=== PATIENT | female | born 1940 | race Caucasian/White ===

== ENCOUNTER → 2016-03-09 | Outpatient (CLI) | payer MEDICARE ==
[~2016-03-09] MED LIST: Z.0.NO CURRENT MEDS
[2016-03-09 13:09] LABS: AUTOMATED NEUTROPHIL # 2.7 TH/MM3 (1.8-7.7); BASOPHIL % 0.6 % (0.0-2.0); EOSINOPHIL # 0.3 TH/MM3 (0-0.4); EOSINOPHIL % 5.4 % (0.0-4.0); HEMATOCRIT 38.7 % (35.0-46.0); HEMO FLAGS DIFF FINAL; LYMPH % 31.8 % (9.0-44.0); LYMPHOCYTE # 1.6 TH/MM3 (1.0-4.8); MEAN CELL VOLUME 82.5 FL (80.0-100.0); MEAN CORPUSCULAR HEMOGLOBIN 27.5 PG (27.0-34.0); MEAN CORPUSCULAR HGB CONC 33.3 % (32.0-36.0); MONO % 10.3 % (0.0-8.0); NEUT % 51.9 % (16.0-70.0); PLATELET COUNT 225 TH/MM3 (150-450); RED BLOOD COUNT 4.69 MIL/MM3 (4.00-5.30); RED CELL DISTRIBUTION WIDTH 13.7 % (11.6-17.2); WHITE BLOOD COUNT 5.2 TH/MM3 (4.0-11.0)
[2016-03-09 13:51] LABS: ALKALINE PHOSPHATASE 64 U/L (45-117); ALT (GPT) 20 U/L (10-53); ANION GAP 10 MEQ/L (5-15); AST (GOT) 13 U/L (15-37); BICARBONATE 25.6 MEQ/L (21.0-32.0); BLOOD UREA NITROGEN 21 MG/DL (7-18); CHLORIDE 105 MEQ/L (98-107); GLOMERULAR FILTRATION RATE 80 ML/MIN (>89); GLUCOSE,FASTING 93 MG/DL (74-99); HDL CHOLESTEROL 59.8 MG/DL (40.0-60.0); LDL CHOLESTEROL 145 MG/DL (0-99); SODIUM (NA) 141 MEQ/L (136-145); TOTAL BILIRUBIN ADULT 0.4 MG/DL (0.2-1.0)
== END ==
LOC: PLAB 09:16
PROVIDERS: ATTEND Family Medicine
DX: E78.4 Other hyperlipidemia (principal); R53.81 Other malaise
CPT/HCPCS: 36415; 80053; 80061; 84443; 85025

== ENCOUNTER → 2017-03-21 | Outpatient (CLI) | payer MEDICARE ==
[2017-03-21 13:53] LABS: AUTOMATED NEUTROPHIL # 2.7 TH/MM3 (1.8-7.7); BASOPHIL % 0.6 % (0.0-2.0); EOSINOPHIL # 0.3 TH/MM3 (0-0.4); EOSINOPHIL % 5.4 % (0.0-4.0); HEMATOCRIT 38.8 % (35.0-46.0); LYMPH % 28.6 % (9.0-44.0); LYMPHOCYTE # 1.5 TH/MM3 (1.0-4.8); MEAN CELL VOLUME 82.6 FL (80.0-100.0); MEAN CORPUSCULAR HEMOGLOBIN 27.7 PG (27.0-34.0); MEAN CORPUSCULAR HGB CONC 33.6 % (32.0-36.0); MONO % 13.8 % (0.0-8.0); MONOCYTE # 0.7 TH/MM3 (0-0.9); NEUT % 51.6 % (16.0-70.0); PLATELET COUNT 242 TH/MM3 (150-450); RED BLOOD COUNT 4.69 MIL/MM3 (4.00-5.30); RED CELL DISTRIBUTION WIDTH 13.7 % (11.6-17.2); WHITE BLOOD COUNT 5.3 TH/MM3 (4.0-11.0)
[2017-03-21 14:03] LABS: ALBUMIN 3.7 GM/DL (3.4-5.0); AST (GOT) 15 U/L (15-37); BICARBONATE 25.3 MEQ/L (21.0-32.0); BLOOD UREA NITROGEN 23 MG/DL (7-18); CALCIUM 9.1 MG/DL (8.5-10.1); CHLORIDE 108 MEQ/L (98-107); CREATININE 0.87 MG/DL (0.50-1.00); GLOMERULAR FILTRATION RATE 63 ML/MIN (>89); GLUCOSE,FASTING 100 MG/DL (74-99); SODIUM (NA) 142 MEQ/L (136-145)
[2017-03-21 14:13] LABS: ALKALINE PHOSPHATASE 77 U/L (45-117); ALT (GPT) 19 U/L (10-53); CHOLESTEROL 208 MG/DL (120-200); CHOLESTEROL/ HDL RATIO 4.35 RATIO; HDL CHOLESTEROL 47.8 MG/DL (40.0-60.0); LDL CHOLESTEROL 126 MG/DL (0-99); TOTAL BILIRUBIN ADULT 0.3 MG/DL (0.2-1.0); TOTAL PROTEIN 6.6 GM/DL (6.4-8.2); TRIGLYCERIDES 172 MG/DL (42-150)
== END ==
LOC: PLAB 08:44
PROVIDERS: ATTEND Family Medicine
DX: E78.5 Hyperlipidemia, unspecified (principal); R53.83 Other fatigue; Z13.21 Encounter for screening for nutritional disorder
CPT/HCPCS: 36415; 80053; 80061; 82306; 84443; 85025

== ENCOUNTER 2017-11-01 05:32 | Inpatient (IN) ==
[2017-11-01] MEDS ORDERED: Metoprolol Tartrate 25 MG Tablet PO ONE (05:58)
[2017-11-01] MEDS ORDERED: Chlorhexidine Gluconate 2% 1 Pack (2 Cloths) TOPICAL ONE (05:58)
[2017-11-01] MEDS ORDERED: Sodium Chlor 0.9% Inj 500 ML IV.SIG SCH (06:00)
[2017-11-01] MEDS ORDERED: Dexamethasone Inj 20 MG/5 ML Vial IV.PUSH PRN (06:03)
[2017-11-01] MEDS ORDERED: Chlorhexidine 4% Topical 120 APPLIC/120 ML Bottle TOPICAL SCH (06:15)
[2017-11-01] MEDS ORDERED: Sodium Chlor 0.9% Inj 73.07 ML, Ropivacaine 0.5% PF Inj 24.63 ML, Ketorolac Inj 30 MG, ... P-ARTICULR SCH ×5 (06:15)
[2017-11-01] MEDS ORDERED: Tranexamic Acid Inj 700 MG in Sodium Chlor 0.9% Inj 100 ML IV.SIG SCH (07:00)
[2017-11-01] MEDS ORDERED: Vancomycin Inj 1,000 MG in Sodium Chlor 0.9% Inj 250 ML IV.SIG SCH (07:00)
[2017-11-01] MEDS ORDERED: ceFAZolin 2 GM Premix Inj 2 GM/50 ML PIGGYBACK IV.SIG SCH (07:00)
[2017-11-01] MEDS ORDERED: Bupivacaine Liposomal PF 1.3% Inj 20 ML Vial ONE (07:05)
[2017-11-01] MEDS ORDERED: Bupivacaine 0.5% Inj 50 ML MDV Vial ONE (07:05)
[2017-11-01] MEDS ORDERED: fentaNYL Citrate Inj 250 MCG/5 ML Ampul ONE (07:34)
[2017-11-01] MEDS ORDERED: Lidocaine PF 1% Inj 5 ML Syringe OTHER ONE (08:15)
--- NOTE | 2017-11-01 10:10 | P.OP ---
- Preoperative Diagnosis (1) Osteoarthritis of right knee - Postoperative Diagnosis (1) Osteoarthritis of right knee Date of procedure: 11/01/17 Procedure: Right total knee arthroplasty Anesthesia: GETA Surgeon: Giacomo Simon MD Fund Accountant: THONG Fofana The surgical procedure was assisted by my Advanced Registered Nurse Practitioner. My ELECTRIC FRYING PAN REPAIRER presence was necessary throughout this case for the manipulation and positioning of the surgical extremity. My ELECTRIC FRYING PAN REPAIRER was assisting me throughout the duration of this procedure. The skill set of an Advance Registered Nurse Practitioner was medically necessary to complete this procedure. During the surgical case, the surgical dressing maker was working at the back table and the Advance Registered Nurse Practitioner was directly assisting me. Operation and Findings: IMPLANTS: DePuy Attune: Patella: size 32. Femur, posterior stabilized size 5. Tibia, rotating platform size 4. Tibial insert, rotating platform, posterior stabilized size 5 mm thickness. ESTIMATED BLOOD LOSS: 100 cc TOURNIQUET TIME: 44 minutes at 250 mmHg pressure. JUSTIFICATION FOR PROCEDURE: The patient has end-stage osteoarthritis to the knee. There is an attached conservative measures pathway form in the chart that describes the nonoperative measures that were undertaken prior to consideration of surgical management. The patient understood the risks and benefits of surgical management. See my office notes for further details PROCEDURE: The patient was brought back to the operative theatre. Adequate anesthesia was obtained. The patient received intravenous vancomycin and Ancef. The lower extremity was prepped and draped in the usual sterile fashion.The leg was exsanguinated, the tourniquet was raised. A standard anterior incision was performed followed by medial parapatellar arthrotomy was performed. End-stage arthritis was identified. Osteotomy of the patella was performed. We drilled holes for the patella. We trialed the patella component. We placed an intramedullary guide into the distal femur. We ultimately resected 13 mm off of the distal femur in 5 degrees of valgus. The remnants of the ACL and PCL were resected. Osteotomy of the proximal tibia was performed, resecting 5 mm off of the medial side. This was done with 3 degrees of posterior slope using an extramedullary guide. The distal end of the guide was placed in the mid aspect of the ankle. The femur was sized, and four chamfer cuts were completed in 3 of external rotation. We then cut the central box in the distal femur to replace the PCL. We resected the remnants of the menisci and removed osteophytes off of the femur and tibia. We then trialed the knee. We identified that the lateral side of the knee was much tighter than the medial side of the knee. Initially we resected the popliteus as this was tight in flexion. We then resected a portion of the LCL and iliotibial band for tightness in extension. This help balance the knee much better. We punched the tibia for the keel, and then used standard technique to cement in components. Excess cement was removed. We trialed the knee again and the final polyethylene thickness was chosen to provide extension to 0 degrees, and flexion of 140 degrees to gravity. The ligaments were appropriately balanced. Lateral release was necessary to obtain excellent patellofemoral tracking. The tourniquet was released and adequate hemostasis was obtained. An intra- articular injection of a ropivacaine cocktail was injected. The posterior knee was inspected for excess cement, which was removed. The final polyethylene was put into position after thorough irrigation. We then closed deep fascia with a #2 Stratafix followed by skin with 2-0 Vicryl followed by Dermabond. Postop plan is to weight-bear as tolerated. DVT prophylaxis will be performed with Ricky, RUDDY mix, early mobilization, and Lovenox followed by aspirin.
[2017-11-01] MEDS ORDERED: Morphine Inj 4 MG/ML Vial IV.PUSH PRN (10:11)
[2017-11-01] MEDS ORDERED: Bisacodyl 10 MG Supp RECTAL PRN (10:11)
[2017-11-01] MEDS ORDERED: Post-op Orders (for Pharmacy) OTHER STA (10:11)
[2017-11-01] MEDS ORDERED: Aluminum/Magnesium/Simethacone Susp 30 ML UDC PO PRN ×2 (10:11→20:55)
[2017-11-01] MEDS ORDERED: Morphine Inj 4 MG/ML Vial ONE (10:37)
[2017-11-01] MEDS ORDERED: *Meperidine Inj 25 MG/ML Vial PERIprocedural Use ONLY ONE (10:42)
[2017-11-01] MEDS ORDERED: Tranexamic Acid Inj 700 MG in Sodium Chlor 0.9% Inj 100 ML IV.SIG ONE (11:00)
[2017-11-01] MEDS ORDERED: *morphine SULFATE 10 MG/ML PERIprocedure ONLY ONE (11:01)
[2017-11-01] MEDS ORDERED: HYDROmorphone PF Inj 2 MG/ML Vial ONE (11:45)
--- NOTE | 2017-11-01 12:33 | XR ---
EXAM DATE: 11/01/2017 10:11 AM EDT AGE/SEX: 77 years / Female INDICATIONS: Post op right knee. Patient complains of right knee pain. CLINICAL DATA: This is the patient's initial encounter. Patient reports that signs and symptoms have been present for 1 day and indicates a pain score of 6/10. MEDICAL/SURGICAL HISTORY: None. None. None. COMPARISON: No prior exams available for comparison. FINDINGS: AP and lateral views of the right knee demonstrate no fracture or dislocation. There is metallic hard alaniz at the distal femur and proximal tibia related to total knee arthroplasty and there is a radiolu cent patellar component. Air is present within the joint and soft tissues, as expected. No joint effu deborah is seen. There is no concerning radiopaque foreign body. CONCLUSION: Expected changes following recent right total knee arthroplasty. Electronically signed by: Sky Craig MD 11/01/2017 12:32 PM EDT
--- NOTE | 2017-11-01 13:57 | P.DCO ---
- Physical Therapy Physical Therapy: Gait training, Transfer training, bed to chair Knee: Total knee Right Lower Extremity Weight Bearing: Weight bearing as tolerated Right Lower Extremity Range of Motion: Active ROM - Nursing Nursing: Mick teaching Dressing changes: Do not change dressing Additional instructions: First dressing change in the office. - Certification Need for Home Health services: I have seen patient Sravanthi Jansen on 11/01/17. My clinical findings support the need for the requested home health care services because: Need for Home Health Services: Limited ability to care for self, High risk of falls Homebound Certification: I certify that my clinical findings support that this patient is homebound because: Homebound Certification: Post-op weakness, Unsteady gait/balance
[2017-11-01] MEDS: Sod Chloride 0.9% Inj 1,000 ML IV.CONT SCH (14:52)
[2017-11-01] MEDS: Senna/Docusate Sodium 8.6/50 MG Tablet PO SCH (20:47)
[2017-11-01] MEDS: Multivitamin/Minerals Therapeutic Tablet PO SCH (20:48)
[2017-11-01] MEDS ORDERED: Calcium Carbonate 500 MG Tablet PO SCH (21:00)
[2017-11-01] MEDS ORDERED: Zolpidem Tartrate 5 MG Tablet PO PRN (21:00)
[2017-11-01] MEDS ORDERED: Pantoprazole Sodium 20 MG DR Tablet PO ONE (21:00)
[2017-11-02] MEDS: Sod Chloride 0.9% Inj 1,000 ML IV.CONT SCH ×2 (00:46→11:15)
[2017-11-02 06:50] LABS: Hematocrit 29.1 % (35.0-46.0); Hemoglobin 9.7 gm/dL (11.6-15.3)
--- NOTE | 2017-11-02 07:37 | P.PNOP ---
Subjective Interval history: The patient is resting comfortably in bed in no acute distress. The patient reports minimal pain to the right knee. The patient is requesting to go home today with home health. Physical Exam Vital signs: Vital Signs 11/01/17 10:37 11/01/17 10:45 11/01/17 11:00 Temperature 97.6 F Pulse Rate 94 H 97 H 101 H Respiratory Rate 16 13 23 Blood Pressure 156/69 H 136/59 L 134/65 Pulse Oximetry 100 98 97 11/01/17 11:15 11/01/17 11:30 11/01/17 12:00 Temperature 97.4 F L Pulse Rate 90 95 H 88 Respiratory Rate 12 12 12 Blood Pressure 128/61 126/60 118/60 Pulse Oximetry 97 98 97 11/01/17 13:18 11/01/17 15:24 11/01/17 16:00 Temperature 97.3 F L 98.9 F Pulse Rate 85 93 H Respiratory Rate 14 18 Blood Pressure 115/61 125/62 Pulse Oximetry 97 97 98 11/01/17 20:00 11/02/17 00:00 11/02/17 04:00 Temperature 97.6 F 97.5 F L 98 F Pulse Rate 77 77 70 Respiratory Rate 18 18 18 Blood Pressure 144/81 H 122/62 141/64 H Pulse Oximetry 99 97 97 Intake & Output 11/01/17 11/02/17 11/02/17 18:59 06:59 18:59 Intake Total 1703 / 1703 920 / 920 Output Total 100 / 100 Balance 1603 / 1603 920 / 920 Weight 69.6 kg Intake: IV 1503 / 1503 200 / 200 LR 1000 mL Inj 1,000 ML @ 30 1000 / 1000 mls/hr IV.SIG .Q24H [facility] Rx#: [id number] Cyklokapron Inj 700 MG In NS 203 / 203 Inj 100 ML @ 200 mls/hr IV.SIG ONCE ONE Rx#:[id number] Vancomycin Inj 1,000 MG In NS 250 / 250 Inj 250 ML @ 250 mls/hr IV.SIG RIVER EXPEDITION GUIDE [facility] Rx#:[id number] Ancef 2 GM Premix Inj 2 gm In 50 / 50 50 ml @ 100 mls/hr IV.SIG RIVER EXPEDITION GUIDE [facility] Rx#:[id number] Ancef Inj 1,000 MG In NS Inj 200 / 200 100 ML @ 200 mls/hr IV.SIG Q6H [facility] Rx#:[id number] Oral 100 / 100 720 / 720 Anesthesia Amount 100 / 100 Output: Estimated Blood Loss 100 / 100 Other: # Voids 1 2 Date of Last Bowel Movement 10/31/17 10/31/17 Narrative: The patient's dressing is clean, dry, and intact. EHL/TA/G are intact. 2+ pedal pulse. The patient's calf is soft and nontender. Sensation is intact to light touch distally. Knee immobilizer is in place. Results - Labs CBC & Chem 7: 11/02/17 05:32 Laboratory Results - last 24 hr 11/01/17 11/02/17 06:23 05:32 Hgb 9.7 L Hct 29.1 L Blood Type A Positive Blood Type Recheck Required Antibody Screen Negative - Imaging Impressions Knee X-Ray 11/01/17 10:11 CONCLUSION: Expected changes following recent right total knee arthroplasty. - Procedures Right total knee arthroplasty Assessment and Plan - Problem List (1) Status post total knee replacement, right Code(s): Z96.651 - Presence of right artificial knee joint Status: Acute (2) Osteoarthritis of right knee Code(s): M17.11 - Unilateral primary osteoarthritis, right knee Status: Acute - Assessment and Plan POD #1: [Right] total knee arthroplasty 1. Weightbearing as tolerated on [right] lower extremity. 2. Lovenox followed by aspirin for DVT prophylaxis. 3. Ice as needed for swelling. 4. Stable per ortho for discharge to home health today after class. 5. The patient will follow up with Dr. Simon and/or THONG Lombardi as previously scheduled.
[2017-11-02] MEDS ORDERED: Enoxaparin Inj 40 MG/0.4 ML Syringe SQ SCH (08:00)
[2017-11-02] MEDS ORDERED: Dexamethasone Inj 20 MG/5 ML Vial IV.PUSH ONE (08:00)
[2017-11-02] MEDS: Senna/Docusate Sodium 8.6/50 MG Tablet PO SCH (08:12)
[2017-11-02] MEDS: Multivitamin/Minerals Therapeutic Tablet PO SCH (08:12)
[2017-11-02] MEDS ORDERED: Pantoprazole Sodium 20 MG DR Tablet PO SCH (09:00)
[2017-11-02 09:37] VITALS: O2SAT 96
[2017-11-02 12:16] VITALS: BP 127/62; PULSE 82; RESP 21; TEMP 97.5
--- NOTE | 2017-11-03 11:08 | P.DS ---
Date of admission: 11/01/17 05:32 Primary care physician: Amparo Phillips MD Attending physician on discharge: Giacomo Simon Anticipated date of discharge: 11/02/17 Brief History from admission: The patient was admitted to the hospital for severe osteoarthritis of the right knee to have a right total knee arthroplasty. DS: Diagnosis - Discharge Diagnosis (1) Status post total knee replacement, right Status: Acute (2) Osteoarthritis of right knee Status: Acute DS: Summary Hospital Course: The patient was admitted to the hospital for severe osteoarthritis of the [right ] knee to have a [right] total knee arthroplasty. The patient's surgery went well with no complication. The patient is on a [regular] diet. The patient's DVT prophylaxis includes use of [Lovenox followed by aspirin]. The patient is weightbearing as tolerated. The patient was discharged [home with home health] and will follow up in the office with Dr. Simon and/or THONG Lombardi as previously scheduled. - Time Spent with Patient Total time spent providing and/or coordinating discharge services: Greater than 30 minutes - Quality: VTE Deep Vein Thrombosis/Pulmonary Embolism Present on Admission: No Exam Vital signs: Vital Signs 11/02/17 12:00 Temperature 97.5 F L Pulse Rate 82 Respiratory Rate 21 Blood Pressure 127/62 Pulse Oximetry 96 Intake & Output 11/02/17 11/03/17 11/03/17 18:59 06:59 18:59 Intake Total 1000 / 1000 Balance 1000 / 1000 Intake: IV 1000 / 1000 NS Inj 1,000 ML @ 80 mls/hr IV. 1000 / 1000 CONT .[id number] [facility] Rx#:[id number] Narrative: See last hospital progress note for physical examination Results Procedures completed during hospitalization: Right total knee arthroplasty - Impressions ITS Impressions Knee X-Ray 11/01/17 10:11 CONCLUSION: Expected changes following recent right total knee arthroplasty. Discharge Plan - Discharge Disposition Patient Disposition: W/Home Health Service - Discharge Condition Condition: Stable - Discharge Order Discharge Orders: Discharge Order (Routine); Ordered 11/01/17 Ordered By: Junaid Mckinney - Discharge Details Anticipated Discharge Date: 11/02/17 - Physicians Team Primary Care Provider: Amparo Phillips Attending Provider: Giacomo Simon - Rxs /Orders / Referrals /Forms Prescriptions: Continue calcium carbonate [Calcium 600] 600 mg calcium (1,500 mg) Tablet 1,200 mg PO HS cholecalciferol (vitamin D3) [Vitamin D3] 5,000 unit Tablet 5,000 unit PO HS esomeprazole magnesium [Nexium 24HR] 20 mg Capsule,Delayed Release(Dr/Ec) 20 mg PO DAILY red yeast rice 600 mg Tablet 1,200 mg PO HS Discontinued [id number] [Osteo Bi-Flex Triple Strength] 750 mg-644 mg - 30 mg-1 mg Tablet 1 tab PO DAILY Ambulatory Orders / Order Sets / DME: Adjustable Commode 3-in-1 (1 each) (Routine) Location: Determined by Patient Ordered By: Junaid Mckinney CPM - Continuous Passive Motion Machine (1 each) (Routine) Location: Determined by Patient Ordered By: Junaid Mckinney Walker With Front Wheels (1 each) (Routine) Location: Determined by Patient Ordered By: Junaid Mckinney Referrals: Giacomo Simon MD [Physician] - See Instructions (F/U in the office as previously scheduled with Dr. Simon and/or Sachin Mckinney [facility]) Amparo Phillips MD [Primary Care Provider] - See Instructions - Discharge Instructions Patient Printed Instructions: Hydrocodone/Acetaminophen (By mouth), Knee Replacement (DC) Additional Instructions: No Rx given at discharge. MD has already made sure the patient had prescriptions set up to be picked up once discharged. Patient has already scheduled an appointment with MD after discharge. Spoke with patient about keeping the dressing intact until her first appointment with provider. Patient denies any further questions.
== END 2017-11-02 14:05 | disposition home health service (06) ==
LOC: HSDI 05:32 → N06 12:46
PROVIDERS: ADMIT Orthopaedic Surgery; ATTEND Orthopaedic Surgery